=== PATIENT | female | born 1930 | race Caucasian/White ===

== ENCOUNTER 2017-05-23 11:04 | Observation (INO) | payer OTHER, MEDICARE ==
[2017-05-23] MEDS ORDERED: ACETAMINOPHEN 325 MG TABLET (FP) ONE (12:53)
[2017-05-23] MEDS ORDERED: ACETAMINOPHEN 325 MG TABLET (FP) PO ONE (12:55)
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
[2017-05-23 16:33] LABS: BASOPHIL 0.5 % (0-2.0); EOSINOPHIL 0.4 % (0-4.5); MCH 31.5 pg (25.7-33.7); MCHC 33.1 g/dl (32.0-36.0); MEAN CELL VOLUME 95.1 fl (80-96); MEAN PLT VOLUME 8.7 fl (7.5-11.1); NEUTROPHILS 83.3 % (42.8-82.8); PLATELET COUNT 279 K/MM3 (134-434); RDW 13.9 % (11.6-15.6)
[2017-05-23 16:37] LABS: INR 1.19 (0.82-1.09); PROTHROMBIN TIME (PATIENT) 13.4 SEC (9.98-11.88)
[2017-05-23 16:40] LABS: ACTIVATED PTT 33.5 SECONDS (26.9-34.4)
[2017-05-23 16:53] LABS: ALBUMIN 4.3 g/dl (3.4-5.0); ANION GAP 7 (8-16); BILIRUBIN,TOTAL 0.8 mg/dL (0.2-1.0); CALCIUM 9.1 mg/dL (8.5-10.1); CO2 27 mmol/L (21-32); CREATININE 0.7 mg/dL (0.55-1.02); GLUCOSE,RANDOM 146 mg/dL (74-106); MAGNESIUM 2.3 mg/dL (1.8-2.4); SGOT/AST 24 U/L (15-37); SGPT/ALT 28 U/L (12-78); TOT PROT 7.1 g/dl (6.4-8.2)
[2017-05-23 16:56] LABS: ALK PHOS 74 U/L (45-117); TROPONIN I 0.02 ng/ml (0.00-0.05)
[2017-05-23 17:57] VITALS: BMI 23.6
[2017-05-23] MEDS ORDERED: LOSARTAN POTASSIUM 100 MG TABLET PO SCH (22:00)
[2017-05-23] MEDS ORDERED: ATORVASTATIN CA 10 MG TABLET (FP) PO SCH (22:00)
[2017-05-23] MEDS ORDERED: RIVAROXABAN 20 MG TABLET PO SCH (22:00)
[2017-05-23] MEDS ORDERED: LOSARTAN POTASSIUM 50 MG TABLET (FP) PO SCH (22:00)
[2017-05-23] MEDS: ACETAMINOPHEN 325 MG TABLET (FP) PO PRN (22:28)
[2017-05-24] MEDS ORDERED: PT OWN MED DRAWER 7, Y5N ONE (09:32)
[2017-05-24] MEDS: ACETAMINOPHEN 325 MG TABLET (FP) PO PRN (09:38)
[2017-05-24] MEDS ORDERED: PATIENT'S OWN MEDICATION (NON-FORMULARY) (Omega-3s/Dha/Epa/Fish Oil [Fish Oil 1,200 Mg Sof PO SCH (10:00)
[2017-05-24] MEDS ORDERED: MULTIVITAMINS (DAILY MVI) TABLET (FP) PO SCH (10:00)
[2017-05-24] MEDS ORDERED: METHIMAZOLE 5 MG TABLET (FP) PO SCH (10:00)
[2017-05-24] MEDS ORDERED: CHOLECALCIFEROL (VITAMIN D3) 1,000 UNIT TABLET (FP) PO SCH (10:00)
[2017-05-24] MEDS ORDERED: amLODIPine BESYLATE 2.5 MG TABLET (FP) PO SCH (10:00)
[2017-05-24] MEDS ORDERED: VITAMIN B COMPLEX W/C COMBO TABLET (FP) PO SCH (10:00)
[2017-05-24] MEDS ORDERED: DOCUSATE SODIUM 100 MG CAPSULE (FP) PO SCH (10:00)
--- NOTE | 2017-05-24 14:02 | DS ---
Physical Examination Vital Signs: Vital Signs Temperature 98 F 05/24/17 09:00 Pulse Rate 69 05/24/17 09:00 Respiratory Rate 18 05/24/17 09:00 Blood Pressure 133/57 05/24/17 09:00 O2 Sat by Pulse Oximetry (%) 98 05/24/17 00:00 Constitutional: Yes: Well Nourished, No Distress Eyes: Yes: WNL, Conjunctiva Clear HENT: Yes: WNL, Atraumatic, Normocephalic Neck: Yes: WNL, Supple, Trachea Midline Cardiovascular: Yes: WNL, Regular Rate and Rhythm Respiratory: Yes: WNL, Regular, CTA Bilaterally Gastrointestinal: Yes: WNL, Normal Bowel Sounds, Soft ...Rectal Exam: Yes: Deferred Renal/: Yes: WNL Breast(s): Yes: WNL Musculoskeletal: Yes: WNL Extremities: Yes: WNL Labs: CBC, BMP 05/23/17 15:35 05/23/17 15:35 Discharge Summary Reason For Visit: FALL Current Active Problems Atrial fibrillation (Acute) Fall (Acute) Head trauma (Acute) Hypertension (Acute) Hospital Course: 87 yo female,that presented to the ED on 05/23 s/ p accidental fall and head injury. Wound was repaired . CT head did not show any acute pathology but the second study ordered for follow up since patient is on chronic anticoagulation . Today patient was seen and examined. Denies new complaints . Has normal neurological exam . Repeat CT brain was done and shows no acute bleeding . 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 Condition: Stable - Instructions Diet, Activity, Other Instructions: Cardiac diet Referrals: Benjamin Jacinto MD [Primary Care Provider] - Disposition: HOME - Home Medications Comprehensive Discharge Medication List: Ambulatory Orders Acetaminophen [Tylenol] 650 mg PO PRN PRN 05/23/17 Alpha Lipoic Acid 200 mg PO DAILY 05/23/17 Amlodipine Besylate [Norvasc -] 2.5 mg PO DAILY 05/23/17 B Complex with Vitamin C [B-Complex with C] 1 each PO DAILY 05/23/17 Cholecalciferol (Vitamin D3) [Vitamin D3 -] 1,000 unit PO DAILY 05/23/17 Docusate Sodium [Colace -] 100 mg PO DAILY 05/23/17 Irbesartan [Avapro] 300 mg PO HS 05/23/17 Methimazole 5 mg PO ASDIR 05/23/17 Multivitamin [One Daily] 1 each PO DAILY 05/23/17 [place]-3S/Dha/Epa/Fish Oil [Fish Oil 1,200 mg Softgel] 1 each PO DAILY 05/23/17 Rivaroxaban [Xarelto -] 20 mg PO HS 05/23/17 Simvastatin 10 mg PO HS 05/23/17
--- NOTE | 2017-05-24 14:08 | EKG ---
Test Reason : Blood Pressure : / mmHG Vent. Rate : 063 BPM Atrial Rate : 063 BPM P-R Int : 168 ms QRS Dur : 084 ms QT Int : 434 ms P-R-T Axes : 013 -45 -04 degrees QTc Int : 444 ms NORMAL SINUS RHYTHM LEFT AXIS DEVIATION ABNORMAL ECG WHEN COMPARED WITH ECG OF 05-SEP-2013 06:34, T WAVE VARIATION POOR R WAVE PROGRESSION Confirmed by MUSTAPHA CHAUDHARY MD ([id number]) on 05/24/2017 2:08:24 PM Referred By: Confirmed By:MUSTAPHA CHAUDHARY MD
[2017-05-24 16:04] VITALS: BP 149/89; PULSE 70; TEMP 98.4
[2017-05-25] MEDS ORDERED: ALPHA LIPOIC ACID 200 MG PO SCH (10:00)
== END 2017-05-24 16:03 | disposition home or self-care (01) ==
LOC: JER 11:04 → J8W 15:17
PROVIDERS: ADMIT Specialist; ATTEND Internal Medicine
PROC: 0HQ0XZZ Repair Scalp Skin, External Approach (ICD-10-PCS; principal; 2017-05-23)
DX: S09.90XA Unspecified injury of head, initial encounter (principal); S01.01XA Laceration without foreign body of scalp, initial encounter; I10 Essential (primary) hypertension; I48.91 Unspecified atrial fibrillation; E03.9 Hypothyroidism, unspecified; E78.5 Hyperlipidemia, unspecified; M16.10 Unilateral primary osteoarthritis, unspecified hip; M54.5 Low back pain; G89.29 Other chronic pain; M48.00 Spinal stenosis, site unspecified; Z79.01 Long term (current) use of anticoagulants; W01.198A Fall on same level from slipping, tripping and stumbling with subsequent striking against other object, initial encounter; Y93.89 Activity, other specified; Y92.488 Other paved roadways as the place of occurrence of the external cause
CPT/HCPCS: 12001-25; 36415; 70450-TC; 71020-TC; 72125-TC; 72170-TC; 80053; 83735; 84484; 85025; 85610; 85730; 93005; 93010; 99285-25; G0378